=== PATIENT | male | born 1960 | race Caucasian/White ===

== ENCOUNTER 2016-04-06 16:10 | Emergency (ER) | payer OTHER ==
[~2016-04-06] VITALS: Ht 188 cm; Wt 92.2 kg
[2016-04-06 16:15] VITALS: TEMP 36.5; Ht 188 cm; Wt 92.2 kg
[2016-04-06] MEDS ORDERED: MoRPHine SULFATE 2 MG/ML CARP IV STA (16:45)
[2016-04-06] MEDS ORDERED: ONDANSETRON INJ 2 MG/ML 2 ML VIAL IV STA (16:45)
[2016-04-06] MEDS ORDERED: SODIUM CHLORIDE 0.9% 1000ML 1,000 ML IV ONE (16:45)
[2016-04-06] MEDS ORDERED: OPTIRAY 320 IV PRN (17:00)
[2016-04-06] MEDS ORDERED: ZOLP10TA PO (17:02)
[2016-04-06] MEDS ORDERED: ROSU20TA PO (17:02)
[2016-04-06] MEDS ORDERED: LISI-461 PO (17:02)
[2016-04-06] MEDS ORDERED: ASPI81TA28 PO (17:02)
[2016-04-06] MEDS ORDERED: MULT-506 PO (17:02)
[2016-04-06] MEDS ORDERED: AMLO-110 PO (17:02)
[2016-04-06] MEDS ORDERED: DICL-201 PO (17:02)
[2016-04-06] MEDS ORDERED: PRED20TA PO (17:02)
[2016-04-06 17:20] LABS: BASO % 0.1 %; BASO ABS # 0.01 K/uL (0-0.2); COMPLETE YES; EOS % 0.4 %; HEMATOCRIT 36.4 % (42-52); IG% 0.1 %; LYMPH % 15.4 %; LYMPH ABS # 1.27 K/uL (1.2-3.4); MEAN CELL VOLUME 86.9 fL (80-100); MEAN CORPUSCULAR HEMOGLOBIN 29.6 pg (25-34); MEAN CORPUSCULAR HGB CONC 34.1 g/dl (32-36); MEAN PLATELET VOLUME 10.1 fL (7.4-10.4); MONO % 7.4 %; NEUT % 76.6 %; PLATELET COUNT 191 K/uL (130-400); RED BLOOD COUNT 4.19 M/uL (4.7-6.1); WHITE BLOOD COUNT 8.24 K/uL (4.8-10.8)
[2016-04-06 17:43] LABS: BUN/CREATININE RATIO 18.9 (10-20); CALCIUM 8.6 mg/dl (8.5-10.1); CREATININE 0.96 mg/dl (0.60-1.40); POTASSIUM 3.7 mmol/L (3.5-5.1)
[2016-04-06] MEDS ORDERED: MoRPHine SULFATE 4 MG/ML 1 ML CARP\\VIAL IV STA (18:16)
[2016-04-06 18:22] VITALS: BP 143/82; PULSE 64; O2SAT 99
--- NOTE | 2016-04-06 18:27 | DIAGNOSTIC IMAGING REPORT ---
CT NECK WITH INTRAVENOUS CONTRAST HISTORY: Recent dental extraction; facial and throat swelling TECHNIQUE: Multiaxial CT images of the neck were performed following the use of intravenous contrast. COMPARISON STUDY: None. FINDINGS: The visualized brain parenchyma and orbits are unremarkable. Mild to moderate mucosal thickening within the visualized paranasal sinuses. No fluid levels. The mastoid air cells are clear. No acute fractures within the visualized osseous structures. A 7 mm sclerotic focus within the C7 vertebral body favors a bone island. The lung apices are clear. The major cervical vessels are patent. The parotid and submandibular glands are symmetric. Prevertebral soft tissues and the epiglottis are normal in thickness. The thyroid gland enhances normally. No significant cervical lymphadenopathy. The major mucosal airway surfaces are intact. The airway appears patent. Dental artifact obscures the oral cavity. No loculated fluid collections to suggest an abscess. Small of gas at the empty sockets within the left mandibular teeth consistent with recent tooth extraction. Tiny focus of gas along the buccal surface of the mandible may represent residual postoperative change. IMPRESSION: 1. Status post extraction of a few left mandibular teeth. No adjacent fluid collections to suggest an abscess. 2. The airway remains patent. 3. Additional findings as described above. Electronically signed by: Nirav Xiao M.D. 04/06/2016 6:26 PM Dictated Date/Time: 04/06/2016 6:18 PM
[2016-04-06] MEDS ORDERED: HYDR-5688 PO (18:45)
--- NOTE | 2016-04-07 11:05 | EMERGENCY ROOM VISIT NOTE ---
ED Visit Note First contact with patient: 16:17 CHIEF COMPLAINT: Left jaw pain.. HISTORY OF PRESENT ILLNESS: Mr. David is a 55-year-old white male who ambulates ED accompanied by his into the complaining of right sided mandibular pain. Patient reports 5 days ago he had extraction of 2 mandibular teeth because of decay. He developed dry socket and returned to his dentist who packed his teeth and prescribed an antibiotic; patient has not filled his prescription currently. Additionally he reports he has been having worsening pain over the left side of the mandible. He describes it as a deep achy sensation and rates his discomfort 8/10. He denies radiation of his pain. He has been alternating ibuprofen and acetaminophen for his pain without relief. Associated with his pain he has noted swelling over the mandible and feels like the swelling is running down the left side of the anterior neck to the level of the clavicle causing his sensation of throat swelling, bilateral tinnitus greater on the left than the right and a tingling sensation in his legs.. Sensation. S/Hhe reports a progressive dental pain for hours over the right mandible. The pain is now steady and severe and radiates to the face. S/Hhe has been using but has had moderate relief of her discomfort but tonight the pain became severe. He denies any associated symptoms including fevers, chills, sweats, throat pain , difficulty swallowing, drooling, painful talking, throat, difficulty swallowing, voice changes, drooling, difficulty breathing, decreased appetite, nausea/vomiting. REVIEW OF SYSTEMS: As noted above in History of Present Illness. 8 body systems were reviewed with this patient and found to be negative unless noted above otherwise. PMH: Hypertension, TMJ syndrome, status post unspecified hernia repair and rotator cuff repair.. CURRENT MEDICATION: Medications Dose Route/Sig Max Daily Dose Days Date Category Dose Instructions Aspirin Ec (Aspirin) 81 Mg Tab 81 Mg PO DAILY 04/06/16 Reported Multivitamin (Multivitamins) Tab 1 Tab PO DAILY 04/06/16 Reported Norvasc (Amlodipine Besylate) 5 Mg Tab 5 Mg PO DAILY 04/06/16 Reported Zestril (Lisinopril) 10 Mg Tab 10 Mg PO DAILY 04/06/16 Reported Crestor (Rosuvastatin Calcium) 20 Mg Tab 20 Mg PO DAILY 04/06/16 Reported Ambien (Zolpidem Tartrate) 10 Mg Tab 10 Mg PO HS PRN 04/06/16 Reported Voltaren (Diclofenac Sodium) 75 Mg Tabcr 75 Mg PO BID 04/06/16 Reported TAKE THIS MEDICATION WITH FOOD Prednisone 20 Mg Tab 20 Mg PO UD 04/06/16 Reported TAPER DOWN DOSING PRESCRIBED 04/01/2016 FOLLOWS: TAKE 2 TABLETS (40 MG) DAILY FOR 4 DAYS THEN, TAKE 1 TABLET (20 MG) DAILY FOR 5 DAYS THEN, TAKE 0.5 TABLET (10 MG) DAILY FOR 4 DAYS. . ALLERGIES TO MEDICATION: Patient denies. SOCIAL HISTORY: Patient is currently employed; he feels safe in his home environment; he admits to tobacco and alcohol use. PHYSICAL EXAM: Vital Signs: Date Time Temp Pulse Resp B/P Pulse Ox O2 Delivery O2 Flow Rate FiO2 04/06/16 18:22 64 18 143/82 99 Room Air 04/06/16 16:15 36.5 84 18 138/94 97 Room Air General: 55 year-old white male in mild distress due to pain, nontoxic appearing , afebrile and hemodynamically stable. Neurological: Awake, alert and oriented to person, place and time. Answering questions appropriately and following commands. Normal gait. Good hand eye coordination. No focal motor or sensory deficits. Skin: Warm, dry and pink. HEENT: Atraumatic and normocephalic. Swelling noted over the left mandible in the area of the angle without erythema or warmth. This area is not indurated, fluctuant, or erythematous. Oral cavity is moist and pink. Uvula is midline and no abscesses are seen. No posterior erythema or edema. No tonsillar hypertrophy or exudates. Speech is normal. No drooling. No intraoral trauma is noted. In the area of his dental extraction there is no local erythema or edema. There is no palpable abscess. No cervical or submandibular lymphadenopathy. No auditory or oscillatory stridor. Lungs: Clear to auscultation and equal bilaterally with symmetrical chest wall movements. No wheezing, rales or rhonchi. Abdomen: Flat, soft and nontender with positive bowel sounds. ED COURSE: Patient is assessed as noted above. Laboratory Testing: Test 04/06/16 17:10 Range/Units White Blood Count 8.24 4.8-10.8 K/uL Red Blood Count 4.19 4.7-6.1 M/uL Hemoglobin 12.4 14.0-18.0 g/dL Hematocrit 36.4 42-52 % Mean Corpuscular Volume 86.9 80-100 fL Mean Corpuscular Hemoglobin 29.6 25-34 pg Mean Corpuscular Hemoglobin Concent 34.1 32-36 g/dl Platelet Count 191 130-400 K/uL Mean Platelet Volume 10.1 7.4-10.4 fL Neutrophils (%) (Auto) 76.6 % Lymphocytes (%) (Auto) 15.4 % Monocytes (%) (Auto) 7.4 % Eosinophils (%) (Auto) 0.4 % Basophils (%) (Auto) 0.1 % Neutrophils # (Auto) 6.31 1.4-6.5 K/uL Lymphocytes # (Auto) 1.27 1.2-3.4 K/uL Monocytes # (Auto) 0.61 0.11-0.59 K/uL Eosinophils # (Auto) 0.03 0-0.5 K/uL Basophils # (Auto) 0.01 0-0.2 K/uL RDW Standard Deviation 46.1 36.4-46.3 fL RDW Coefficient of Variation 14.4 11.5-14.5 % Immature Granulocyte % (Auto) 0.1 % Immature Granulocyte # (Auto) 0.01 0.00-0.02 K/uL Sodium Level 139 136-145 mmol/L Potassium Level 3.7 3.5-5.1 mmol/L Chloride Level 107 98-107 mmol/L Carbon Dioxide Level 21 21-32 mmol/L Anion Gap 11.0 3-11 mmol/L Blood Urea Nitrogen 18 7-18 mg/dl Creatinine 0.96 0.60-1.40 mg/dl Est Creatinine Clear Calc Drug Dose 98.7 ml/min Estimated GFR () 101.3 Estimated GFR (Non- 87.4 BUN/Creatinine Ratio 18.9 10-20 Random Glucose 97 70-99 mg/dl Calcium Level 8.6 8.5-10.1 mg/dl Contrast Soft Tissue Neck CT: Was reviewed by myself and read by the radiologist shows symmetrical parotid and submandibular glands, prevertebral and epiglottis are normal, thyroid enhances normally, no significant cervical adenopathy, airway patent. No uniloculated fluid collection suggesting of abscess, small amount of gas at the empty sockets of the left mandible consistent with recent tooth extraction and tiny focus of gas along the buccal surface of the mandible representing postoperative changes. An IV lock was initiated and patient was hydrated with normal saline and received a total 6 mg of morphine IV and 4 mg of Zofran. Patient was reassessed multiple times during his stay in the emergency department. Patient's case was reviewed with Dr. Bess; we agreed on diagnostic approach, treatment, disposition and plan. Patient is educated about his findings and instructed on her treatment plan; he verbalizes understanding and agreement with this plan. CLINIC IMPRESSION: Dental pain. DISPOSITION: Patient discharged home in stable condition accompanied by his ; prior to departure he was reassessed and subjectively reported he was feeling the same. PLAN: Patient was encouraged to continue his medications as prescribed. Patient was encouraged to fill his antibiotic prescription from his dentist and start using the antibiotic as prescribed. Patient was placed on a sliding pain medication scale of ibuprofen, acetaminophen and [place]; appropriate narcotic precautions were discussed with the patient. Was encouraged to considered a liquid/mechanical soft diet until resolution of discomfort. Patient was encouraged to follow-up with his dentist for definitive care and treatment. Patient was encouraged return the ED for worsening/uncontrolled pain, worsening face swelling, facial redness, fevers or any new/concerning symptoms.
== END 2016-04-06 18:50 | disposition home or self-care (01) ==
LOC: C.EDB 16:14 → C.EDA 18:50
DX: K08.89 Other specified disorders of teeth and supporting structures (principal); R68.84 Jaw pain; I10 Essential (primary) hypertension; M26.629 Arthralgia of temporomandibular joint, unspecified side; Z79.82 Long term (current) use of aspirin